=== PATIENT | female | born 1955 | race Caucasian/White ===

== ENCOUNTER 2016-07-29 18:12 | Emergency (ER) | payer OTHER ==
[~2016-07-29 18:12] MED LIST: AMOXICILLIN500 MG PO; ASPIR 8181 MG PO; HYDRALAZINE HCL25 MG PO; LASIX40 MG PO; LIPITOR40 MG PO; NORVASC5 MG PO; VITAMIN D1000 UNI1 PO; ZANTAC300 MG PO; ZESTRIL10 MG PO
== END 2016-07-29 18:40 | disposition home or self-care (01) ==
LOC: ER 18:12
DX: M79.652 Pain in left thigh (principal); M62.838 Other muscle spasm; R60.0 Localized edema; E10.22 Type 1 diabetes mellitus with diabetic chronic kidney disease; I12.9 Hypertensive chronic kidney disease with stage 1 through stage 4 chronic kidney disease, or unspecified chronic kidney disease; N18.3 Chronic kidney disease, stage 3 (moderate); Z86.73 Personal history of transient ischemic attack (TIA), and cerebral infarction without residual deficits; Z79.82 Long term (current) use of aspirin; Z79.899 Other long term (current) drug therapy

== ENCOUNTER 2016-08-10 15:01 | Emergency (ER) | payer OTHER | END 2016-08-10 21:45 | disposition short-term general hospital (02) | LOC: ER 15:01 | DX: E10.10 Type 1 diabetes mellitus with ketoacidosis without coma (principal); E10.22 Type 1 diabetes mellitus with diabetic chronic kidney disease; I12.9 Hypertensive chronic kidney disease with stage 1 through stage 4 chronic kidney disease, or unspecified chronic kidney disease; N18.3 Chronic kidney disease, stage 3 (moderate); E86.0 Dehydration; E78.5 Hyperlipidemia, unspecified; K21.9 Gastro-esophageal reflux disease without esophagitis; Z86.73 Personal history of transient ischemic attack (TIA), and cerebral infarction without residual deficits; Z79.82 Long term (current) use of aspirin; Z79.899 Other long term (current) drug therapy | CPT/HCPCS: 36415; 51702; 96361; 96365; 96366; 96376 ==